=== PATIENT | male | born 1975 | race African-American/Black ===

== ENCOUNTER 2016-07-04 16:53 | Emergency (ER) | payer MEDICARE | END 2016-07-04 20:10 | disposition home or self-care (01) | LOC: ER 16:53 | DX: R07.9 Chest pain, unspecified (principal); K21.9 Gastro-esophageal reflux disease without esophagitis; I10 Essential (primary) hypertension; F17.210 Nicotine dependence, cigarettes, uncomplicated; Z79.899 Other long term (current) drug therapy | CPT/HCPCS: 36415; 96374; 96375; J1200 ==